=== PATIENT | male | born 1975 | race Hispanic/Latino ===

== ENCOUNTER 2017-10-12 12:28 | Emergency (ER) | payer MEDICAID, OTHER ==
[2017-10-12 12:29] VITALS: BMI 29.0
[2017-10-12 13:32] VITALS: BP 148/94; PULSE 116; RESP 20; TEMP 98.6; O2SAT 97
--- NOTE | 2017-10-12 14:47 | ED PDOC ---
Lower Extremity Pain/Injury Time Seen by Provider: 10/12/17 14:02 Chief Complaint (Nursing): Lower Extremity Problem/Injury Chief Complaint (Provider): Bilateral lower extremity pain History Per: Patient History/Exam Limitations: no limitations Onset/Duration Of Symptoms: Persistent Current Symptoms Are (Timing): Still Present Additional Complaint(s): 41yo male with history of polycythemia vera, presents to ED with complaints of intermittent bilateral foot pain which he describes as sharp at times and at other like pins and needles for the past month. He also reports for the past 2 months, he has been feeling increasingly tired and has gained weight (30 lbs). He also reports for the past week, he has been nauseous and excessively thirsty. He denies any associated fever, chest pain, shortness of breath, abdominal pain, vomiting, diarrhea, urinary symptoms, injuries or trauma. No other complaints. Of note, patient states his last venipuncture was 3 years ago since he has not been able to follow up with a PCP. Past Medical History Vital Signs: Last Vital Signs Temp 98.6 F 10/12/17 13:29 Pulse 116 H 10/12/17 13:29 Resp 20 10/12/17 13:29 BP 148/94 H 10/12/17 13:29 Pulse Ox 97 10/12/17 13:29 - Medical History PMH: Depression Denies: Arthritis, Asthma, CHF, COPD, Diabetes, HTN, Hypercholesterolemia, Seizures - Surgical History Surgical History: Denies: CABG, Pacemaker - Family History Family History: States: Unknown Family Hx Denies: CAD - Immunization History Hx Tetanus Toxoid Vaccination: No Hx Influenza Vaccination: No Hx Pneumococcal Vaccination: No - Home Medications Home Medications: Ambulatory Orders Medication Instructions Recorded Albuterol Sulfate [Proair Hfa] 0.09 mg IH Q6H PRN #2 inh 10/26/16 Oseltamivir Phosphate [Tamiflu] 75 mg PO BID 5 Days capsule 10/26/16 predniSONE [predniSONE Tab] 20 mg PO BID 5 Days tab 10/26/16 - Allergies Allergies/Adverse Reactions: Allergies Allergy/AdvReac Type Severity Reaction Status Date / Time oxiconazole Allergy RASH Verified 10/26/16 14:38 penicillin G AdvReac RASH Verified 10/26/16 14:38 narcotics Allergy DIZZINESS Uncoded 10/12/17 13:29 Review of Systems ROS Statement: Except As Marked, All Systems Reviewed And Found Negative Constitutional: Positive for: Other (weight gain). Negative for: Fever Cardiovascular: Negative for: Chest Pain Respiratory: Negative for: Shortness of Breath Gastrointestinal: Positive for: Nausea. Negative for: Vomiting, Abdominal Pain , Diarrhea Genitourinary Male: Negative for: Dysuria, Hematuria Musculoskeletal: Positive for: Foot Pain (bilateral) Physical Exam - Reviewed Nursing Documentation Reviewed: Yes Vital Signs Reviewed: Yes - Physical Exam Appears: Positive for: Non-toxic, No Acute Distress Head Exam: Positive for: ATRAUMATIC, NORMAL INSPECTION, NORMOCEPHALIC Skin: Positive for: Normal Color Eye Exam: Positive for: EOMI, PERRL Neck: Positive for: Painless ROM, Supple Cardiovascular/Chest: Positive for: Regular Rate, Rhythm Respiratory: Positive for: Normal Breath Sounds. Negative for: Rales, Rhonchi, Wheezing Pulses-Radial (L): 2+ Pulses-Radial (R): 2+ Gastrointestinal/Abdominal: Positive for: Normal Exam, Soft. Negative for: Tenderness Extremity: Positive for: Normal ROM. Negative for: Tenderness, Swelling Neurologic/Psych: Positive for: Alert, Oriented. Negative for: Motor/Sensory Deficits - Laboratory Results Result Diagrams: 10/12/17 14:54 10/12/17 14:54 - ECG O2 Sat by Pulse Oximetry: 97 (RA) Pulse Ox Interpretation: Normal Medical Decision Making Medical Decision Making: Impression: Bilateral foot pain, generalized malaise Plan: -- CMP -- TSH -- CBC -- Urinalysis Time: 1600 Labs reviewed and discussed with patient. Based on history, exam and diagnostic results plan will be for follow-up outpatient. Patient to be given referral for a PCP. Advised to follow up with referral physician or the clinic in 1-2 days without fail. Return to the emergency room at any time for any new or worsening symptoms. Patient states he fully agrees with and understands discharge instructions. States that he agrees with the plan and disposition. Verbalized and repeated discharge instructions and plan. I have given the patient opportunity to ask any additional questions. Scribe Attestation: Documented by Jolene Chavez acting as a scribe for CHENTE Bower Provider Attestation: All medical record entries made by the Scribe were at my direction and personally dictated by me. I have reviewed the chart and agree that the record accurately reflects my personal performance of the history, physical exam, medical decision making, and the department course for this patient. I have also personally directed, reviewed, and agree with the discharge instructions and disposition. Disposition - Clinical Impression Clinical Impression: Foot pain, Malaise, Weight gain - Patient ED Disposition Is Patient to be Admitted: No Counseled Patient/Family Regarding: Studies Performed, Diagnosis, Need For Followup - Disposition Referrals: [facility] [Outside] Nella Curry MD [Staff Provider] - Disposition: Routine/Home Disposition Time: 16:04 Condition: STABLE Additional Instructions: Thank you for letting us take care of you today. You were treated for bilateral foot pain, likely neuropathy, generalized malaise, weight gain. The emergency medical care you received today was directed at your acute symptoms. Return to the Emergency Department if your symptoms worsen, do not improve, or if you have any other problems. Please call one of the physicians/clinics you have been referred to that are listed on the Patient Visit Information form that is included in your discharge packet. Bring any paperwork you were given at discharge with you along with any medications you are taking to your follow up visit. Our treatment cannot replace ongoing medical care by a primary care provider (PCP) outside of the emergency department. Thank you for allowing the [facility] team to be part of your care today. Instructions: Peripheral Neuropathy (ED), Weakness (ED) Forms: [facility] ([place]ian) - PA / TRANSFORMATION ANALYST / Resident Statement MD/DO has reviewed & agrees with the documentation as recorded.
[2017-10-12 15:01] LABS: BASO % 0.5 % (0.0-2.0); EOS % 0.3 % (0.0-4.0); HEMOGLOBIN 17.1 g/dL (12.0-18.0); LYMPH # 1.6 K/uL (1.0-4.3); LYMPH % 27.8 % (20.0-40.0); MEAN CELL VOLUME 99.5 fl (80.0-94.0); MEAN CORPUSCULAR HEMOGLOBIN 33.8 pg (27.0-31.0); MEAN PLATELET VOLUME 8.1 fl (7.2-11.7); MONO # 0.5 K/uL (0.0-0.8); MONO % 8.7 % (0.0-10.0); NEUT # 3.7 K/uL (1.8-7.0); NEUT % 62.7 % (50.0-75.0); NRBC % 0.1 % (0.0-0.0); RBC 5.06 Mil/uL (4.40-5.90); RED CELL DISTRIBUTION WIDTH 12.8 % (11.5-14.5); WHITE BLOOD COUNT 5.9 K/uL (4.8-10.8)
[2017-10-12 15:12] LABS: ALB/GLOB RATIO 1.6 (1.0-2.1); ALBUMIN 4.5 g/dL (3.5-5.0); ALT/SGPT 102 U/L (21-72); AST/SGOT 48 U/L (17-59); BLOOD UREA NITROGEN 14 mg/dl (9-20); CALCIUM 9.3 mg/dL (8.4-10.2); GFR AFRICAN-AMERICAN > 60; GFR NON-AFRICAN AMERICAN > 60
[2017-10-12 15:13] LABS: URINE AMORPHOUS SEDIMENT RARE /ul (<OCC); URINE BACTERIA RARE (<OCC); URINE BILIRUBIN NEGATIVE (NEGATIVE); URINE BLOOD NEGATIVE (NEGATIVE); URINE CLARITY SLIGHTY-CLOUDY (Clear); URINE COLOR YELLOW (YELLOW); URINE GLUCOSE (UA) NEG (Normal); URINE LEUKOCYTE ESTERASE NEG Leu/uL (Negative); URINE NITRATE NEGATIVE (NEGATIVE); URINE PROTEIN NEGATIVE (NEGATIVE); URINE UROBILINOGEN 0.2-1.0 mg/dL (0.2-1.0)
== END 2017-10-12 16:13 | disposition home or self-care (01) ==
LOC: H.ER 12:28
DX: G62.9 Polyneuropathy, unspecified (principal); F32.9 Major depressive disorder, single episode, unspecified; Z88.0 Allergy status to penicillin

== ENCOUNTER 2018-12-11 11:28 | Emergency (ER) | payer MEDICAID, OTHER ==
--- NOTE | 2018-12-11 13:32 | ED PDOC ---
HPI: Abdomen Time Seen by Provider: 12/11/18 13:10 Chief Complaint (Nursing): GI Problem Chief Complaint (Provider): Constipation History Per: Patient History/Exam Limitations: no limitations Onset/Duration Of Symptoms: Days (x 14) Current Symptoms Are (Timing): Still Present Quality Of Discomfort: Gas Associated Symptoms: Constipation Alleviating Factors: None Additional Complaint(s): 43 year old male presents to the ED with complaints of constipation for the past 2 weeks. Patient reports he is having bowel movements, which are much smaller than normal. He denies any abdominal pain but reports he feels full. Patient otherwise denies any vomiting, diarrhea, or fevers. He has been passing gas frequently. No prior history of abdominal surgery. Past Medical History Reviewed: Historical Data, Nursing Documentation, Vital Signs - Medical History PMH: Depression Denies: Arthritis, Asthma, CHF, COPD, Diabetes, HTN, Hypercholesterolemia, Seizures - Surgical History Surgical History: Denies: CABG, Pacemaker - Family History Family History: States: Unknown Family Hx Denies: CAD - Immunization History Hx Tetanus Toxoid Vaccination: No Hx Influenza Vaccination: No Hx Pneumococcal Vaccination: No - Home Medications Home Medications: Ambulatory Orders Medication Instructions Recorded Albuterol Sulfate [Proair Hfa] 0.09 mg IH Q6H PRN #2 inh 10/26/16 Oseltamivir Phosphate [Tamiflu] 75 mg PO BID 5 Days capsule 10/26/16 predniSONE [predniSONE Tab] 20 mg PO BID 5 Days tab 10/26/16 Polyethylene Glycol 3350 [Miralax] 17 gm PO DAILY #5 packet 12/11/18 - Allergies Allergies/Adverse Reactions: Allergies Allergy/AdvReac Type Severity Reaction Status Date / Time oxiconazole Allergy RASH Verified 10/26/16 14:38 penicillin G AdvReac RASH Verified 10/26/16 14:38 narcotics Allergy DIZZINESS Uncoded 10/12/17 13:29 Review of Systems ROS Statement: Except As Marked, All Systems Reviewed And Found Negative Constitutional: Negative for: Fever, Chills Cardiovascular: Negative for: Chest Pain Respiratory: Negative for: Shortness of Breath Gastrointestinal: Positive for: Constipation. Negative for: Nausea, Vomiting, Abdominal Pain, Diarrhea, Rectal Pain Genitourinary Male: Negative for: Dysuria, Hematuria Musculoskeletal: Negative for: Back Pain Neurological: Negative for: Weakness, Numbness Physical Exam - Reviewed Nursing Documentation Reviewed: Yes Vital Signs Reviewed: Yes - Physical Exam Appears: Positive for: Well, Non-toxic, No Acute Distress Head Exam: Positive for: ATRAUMATIC, NORMOCEPHALIC Skin: Positive for: Normal Color, Warm, DRY Eye Exam: Positive for: EOMI, Normal appearance, PERRL Neck: Positive for: Normal, Supple Cardiovascular/Chest: Positive for: Regular Rate, Rhythm. Negative for: Murmur Respiratory: Positive for: Normal Breath Sounds. Negative for: Accessory Muscle Use, Respiratory Distress Gastrointestinal/Abdominal: Positive for: Normal Exam, Soft. Negative for: Tenderness, Distended Back: Positive for: Normal Inspection. Negative for: L CVA Tenderness, R CVA Tenderness Extremity: Positive for: Normal ROM. Negative for: Pedal Edema, Deformity Neurological/Psych: Positive for: Awake, Alert, Oriented (x3) - Progress Re-evaluation Time: 14:30 Condition: Re-examined, Improved Medical Decision Making Medical Decision Making: Initial Impression: Constipation Plan: * KUB x-ray KUB shows constipation. No air fluid levels. Upon provider reevaluation patient is medically stable, and requires no further treatment in the ED at this time. Patient will be discharged home with Rx for Miralax. Counseling was provided and all questions were answered regarding diagnosis and need for follow up with PMD. There is agreement to discharge plan. Return if symptoms persist or worsen. Scribe Attestation: Documented by Gloria Stanley, acting as a scribe for Zaid Beavers MD. Provider Scribe Attestation: All medical record entries made by the Scribe were at my direction and personally dictated by me. I have reviewed the chart and agree that the record accurately reflects my personal performance of the history, physical exam, medical decision making, and the department course for this patient. I have also personally directed, reviewed, and agree with the discharge instructions and disposition. Disposition - Clinical Impression Clinical Impression: Constipated - Patient ED Disposition Is Patient to be Admitted: No Doctor Will See Patient In The: Office Counseled Patient/Family Regarding: Studies Performed, Diagnosis, Need For Followup, Rx Given - Disposition Referrals: [facility] [Outside] Disposition: Routine/Home Disposition Time: 14:31 Condition: GOOD Additional Instructions: TESSA HERR, thank you for letting us take care of you today. Your provider was Zaid Beavers MD and you were treated for ABDOMINAL PAIN. The emergency medical care you received today was directed at your acute symptoms. If you were prescribed any medication, please fill it and take as directed. It may take several days for your symptoms to resolve. Return to the Emergency Department if your symptoms worsen, do not improve, or if you have any other problems. Please contact your doctor or call one of the physicians/clinics you have been referred to that are listed on the Patient Visit Information form that is included in your discharge packet. Bring any paperwork you were given at discharge with you along with any medications you are taking to your follow up visit. Our treatment cannot replace ongoing medical care by a primary care provider outside of the emergency department. Thank you for allowing the [facility] team to be part of your care today. If you had an X-Ray or CT scan: A Radiologist will review the ED reading if any change in treatment is needed we will contact you. If you had a blood, urine, or wound culture: It will take several days for the results, if any change in treatment is needed we will contact you. If you had an STI test: It will take 48 hours for the results. Please call after 1 week if you have not heard back. Prescriptions: Polyethylene Glycol 3350 [Miralax] 17 gm PO DAILY #5 packet Instructions: Constipation in Adults - POA Present On Arrival: None
[2018-12-11 13:57] VITALS: BMI 21.5
[2018-12-11 15:23] VITALS: TEMP 98.7
[2018-12-11 15:29] VITALS: BP 128/80; PULSE 90; RESP 18; O2SAT 99
--- NOTE | 2018-12-11 16:41 | RAD ---
Date of service: 12/11/2018 HISTORY: constipation COMPARISON: None available. TECHNIQUE: 1 view obtained. FINDINGS: BOWEL: Constipation without fecal impaction or obstruction. BONES: Normal. OTHER FINDINGS: None. IMPRESSION: No significant or acute findings to account for/ related to the clinical presentation. Additional benign and/or incidental findings described above.
== END 2018-12-11 15:16 | disposition home or self-care (01) ==
LOC: H.EDDOWN 11:28 → H.ER 11:28
DX: K59.00 Constipation, unspecified (principal); Z88.0 Allergy status to penicillin; Z88.5 Allergy status to narcotic agent